=== PATIENT | female | born 1965 | race Caucasian/White ===

== ENCOUNTER 2016-08-14 13:43 | Emergency (ER) | payer SELFPAY ==
[~2016-08-14] VITALS: Ht 154.9 cm; Wt 54.4 kg
[~2016-08-14 13:43] MED LIST: CHLO15MO2 MM; HYDR-971 PO; PENI500T PO
[2016-08-14 14:27] LABS: BASO # 0.1 x10^3/uL (0.0-0.2); BASO % 1 % (0-3); EOS % 1 % (0-3); HEMATOCRIT 30.1 % (36.0-47.0); HEMOGLOBIN 9.4 g/dL (12.0-15.5); LYMPH # 1.2 x10^3/uL (1.0-4.8); LYMPH % 9 % (24-48); MEAN CORPUSCULAR HEMOGLOBIN 23 pg (25-35); MEAN CORPUSCULAR HGB CONC 31 g/dL (31-37); MEAN CORPUSCULAR VOLUME 73 fL (79-100); MONO % 7 % (0-9); NEUT % 82 % (31-73); PLATELET COUNT 501 x10^3/uL (140-400); RED BLOOD COUNT 4.15 x10^6/uL (3.50-5.40); RED CELL DISTRIBUTION WIDTH 18.2 % (11.5-14.5); WHITE BLOOD COUNT 12.7 x10^3/uL (4.0-11.0)
[2016-08-14 14:39] LABS: CREATININE 0.9 mg/dL (0.6-1.0); GFR 66.3; POTASSIUM 3.8 mmol/L (3.5-5.1)
[2016-08-14 14:45] LABS: ALBUMIN 4.2 g/dL (3.4-5.0); ALBUMIN/GLOBULIN RATIO 1.1 (1.0-1.7); TOTAL BILIRUBIN 0.8 mg/dL (0.2-1.0); TOTAL PROTEIN 8.2 g/dL (6.4-8.2)
[2016-08-14] MEDS ORDERED: KETOROLAC TROMETHAMINE 30 MG/ML INJ. IV ONE (14:45)
--- NOTE | 2016-08-14 14:54 | RAD ---
EXAM: Pelvic ultrasound. HISTORY: Pelvic pain and vaginal bleeding. COMPARISON: None. FINDINGS: Sonographic evaluation of the pelvis was performed transabdominally. The uterus is anteverted and measures 13.2 x 8.3 x 9.2 cm. It is enlarged by multiple fibroids that measure up to 8.3 x 6.6 x 6.1 cm at the fundus. These are secured the endometrial stripe which is not well seen. Some endometrial fluid is suspected along the lower uterine segment or endocervical. Both ovaries are obscured currently. IMPRESSION: 1. The uterus is enlarged by multiple fibroids that measure up to 8.3 cm. These obscure the endometrial stripe which is not well assessed currently. Endometrial fluid is consistent with hemorrhage.
[2016-08-14 15:08] LABS: PLT ESTIMATE INCREASED (ADEQUATE)
[2016-08-14 15:10] LABS: ANISOCYTOSIS SLIGHT; HYPOCHROMIA MOD; MICROCYTOSIS MOD; POLYCHROMASIA SLIGHT
[2016-08-14] MEDS ORDERED: fentaNYL PF VIAL 100 MCG/2 ML VIAL IV ONE (15:45)
[2016-08-14 16:24] VITALS: BP 119/64
--- NOTE | 2016-08-14 16:37 | PHYS DOC ---
Past Medical History Past Medical History: No Pertinent History Past Surgical History: Alcohol Use: None Drug Use: Marijuana Adult General Chief Complaint Chief Complaint: ABDOMINAL PAIN HPI HPI Patient is a 51 year old female who presents with severe pelvic pain and heavy bleeding. The patient states for quite some time her menstrual periods have been very heavy with clots and sometimes severe cramping pain. Her menses began last night, and this afternoon, she developed severe pain in her pelvic area that shoots down both legs into her anterior thighs. She's had heavy bleeding with clots. She also recently has had irregular menstrual bleeding. Patient states that she was told in the past she had a "fibroid cyst". She has no insurance and is not able to follow-up with a [facility]PER[facility] doctor. She had a in 1983. Patient has used Profen in the past but not regularly. She is on no regular medications. She states when she takes aspirin and she thinks it makes her bleeding heavier. Review of Systems Review of Systems Constitutional: Denies fever or chills [] Eyes: Denies change in visual acuity, redness, or eye pain [] HENT: Denies nasal congestion or sore throat [] Respiratory: Denies cough or shortness of breath [] Cardiovascular: Denies chest pain GI: Denies abdominal pain, nausea, vomiting, bloody stools or diarrhea [] : As in history of present illness Musculoskeletal: Denies back pain or joint pain [] Integument: Denies rash or skin lesions [] Neurologic: Denies headache, focal weakness or sensory changes [] Current Medications Current Medications Current Medications Medications (Trade) Dose Ordered Sig/[facility] Start Time Stop Time Status Last Admin Dose Admin Fentanyl Citrate (Fentanyl 2ml Vial) 75 mcg 1X ONCE 08/14/16 15:45 08/14/16 15:46 DC 08/14/16 15:51 75 MCG Ketorolac Tromethamine (Toradol) 30 mg 1X ONCE 08/14/16 14:45 08/14/16 14:46 DC 08/14/16 14:37 30 MG Allergies Allergies Allergies Coded Allergies Type Severity Reaction Last Updated Verified No Known Drug Allergies 02/06/13 No Physical Exam Physical Exam Constitutional: Well developed, well nourished, , mentating normally, appears to feel well. HENT: Normocephalic, atraumatic, bilateral external ears normal, nose normal. [] Eyes: conjunctiva normal, no discharge. [] Neck: Normal range of motion, no stridor. [] Cardiovascular:Heart rate regular rhythm, no murmur [] Lungs & Thorax: Bilateral breath sounds clear to auscultation [] Abdomen: Bowel sounds normal, soft, no masses, no pulsatile masses. Nondistended. Mild to moderate tenderness to palpation of the suprapubic area and across the low lower quadrants bilaterally in the pelvic area. No rebound or guarding. Skin: Warm, dry, no erythema, no rash. [] Extremities: No tenderness, no cyanosis, no clubbing, ROM intact, no edema. [] Neurologic: Alert and oriented X 3, normal motor function, normal sensory function, no focal deficits noted. [] Current Patient Data Vital Signs Vital Signs Date Time Temp Pulse Resp B/P (MAP) Pulse Ox O2 Delivery O2 Flow Rate FiO2 08/14/16 15:51 Room Air 08/14/16 14:00 97.8 69 24 100 97.8 Lab Values Laboratory Tests Test 08/14/16 13:10 08/14/16 14:05 POC Urine HCG, Qualitative Hcg negative (Negative) White Blood Count 12.7 x10^3/uL (4.0-11.0) H Red Blood Count 4.15 x10^6/uL (3.50-5.40) Hemoglobin 9.4 g/dL (12.0-15.5) L Hematocrit 30.1 % (36.0-47.0) L Mean Corpuscular Volume 73 fL (79-100) L Mean Corpuscular Hemoglobin 23 pg (25-35) L Mean Corpuscular Hemoglobin Concent 31 g/dL (31-37) Red Cell Distribution Width 18.2 % (11.5-14.5) H Platelet Count 501 x10^3/uL (140-400) H Neutrophils (%) (Auto) 82 % (31-73) H Lymphocytes (%) (Auto) 9 % (24-48) L Monocytes (%) (Auto) 7 % (0-9) Eosinophils (%) (Auto) 1 % (0-3) Basophils (%) (Auto) 1 % (0-3) Neutrophils # (Auto) 10.4 x10^3uL (1.8-7.7) H Lymphocytes # (Auto) 1.2 x10^3/uL (1.0-4.8) Monocytes # (Auto) 0.9 x10^3/uL (0.0-1.1) Eosinophils # (Auto) 0.1 x10^3/uL (0.0-0.7) Basophils # (Auto) 0.1 x10^3/uL (0.0-0.2) Platelet Estimate Increased (ADEQUATE) Polychromasia Slight Hypochromasia Mod Anisocytosis Slight Microcytosis Mod Sodium Level 136 mmol/L (136-145) Potassium Level 3.8 mmol/L (3.5-5.1) Chloride Level 101 mmol/L (98-107) Carbon Dioxide Level 23 mmol/L (21-32) Anion Gap 12 (6-14) Blood Urea Nitrogen 17 mg/dL (7-20) Creatinine 0.9 mg/dL (0.6-1.0) Estimated GFR (Cockcroft-Gault) 66.3 BUN/Creatinine Ratio 19 (6-20) Glucose Level 94 mg/dL (70-99) Calcium Level 9.0 mg/dL (8.5-10.1) Total Bilirubin 0.8 mg/dL (0.2-1.0) Aspartate Amino Transferase (AST) 38 U/L (15-37) H Alanine Aminotransferase (ALT) 34 U/L (14-59) Alkaline Phosphatase 107 U/L (46-116) Total Protein 8.2 g/dL (6.4-8.2) Albumin 4.2 g/dL (3.4-5.0) Albumin/Globulin Ratio 1.1 (1.0-1.7) Laboratory Tests 08/14/16 14:05 Laboratory Tests 08/14/16 14:05 EKG EKG [] Radiology/Procedures Radiology/Procedures EXAM: Pelvic ultrasound. HISTORY: Pelvic pain and vaginal bleeding. COMPARISON: None. FINDINGS: Sonographic evaluation of the pelvis was performed transabdominally. The uterus is anteverted and measures 13.2 x 8.3 x 9.2 cm. It is enlarged by multiple fibroids that measure up to 8.3 x 6.6 x 6.1 cm at the fundus. These are secured the endometrial stripe which is not well seen. Some endometrial fluid is suspected along the lower uterine segment or endocervical. Both ovaries are obscured currently. IMPRESSION: 1. The uterus is enlarged by multiple fibroids that measure up to 8.3 cm. These obscure the endometrial stripe which is not well assessed currently. Endometrial fluid is consistent with hemorrhage. [] Course & Med Decision Making Course & Med Decision Making Pertinent Labs and Imaging studies reviewed. (See chart for details) 51-year-old female presents with pelvic pain and heavy bleeding. As a history of a fibroid. test negative. Labs show anemia consistent with her history of heavy irregular menstrual bleeding. Ultrasound shows multiple fibroids but no other significant findings. Patient was given IV pain meds and felt much better. Discussed with the patient and her that she really needs to follow up with [facility] and gave her a referral. Also gave her a copy of her ultrasound to take with her to her appointment. See instructions for plan. [] Dragon Disclaimer Dragon Disclaimer This electronic medical record was generated, in whole or in part, using a voice recognition dictation system. Departure Departure Impression: Primary Impression: Dysmenorrhea Additional Impressions: Menorrhagia Anemia, blood loss Disposition: 01 HOME, SELF-CARE Condition: STABLE Referrals: NO PCP (PCP) DAVE MORRIS Jr, MD Patient Instructions: Dysmenorrhea, [id number] Additional Instructions: As we discussed, your ultrasound report did show large fibroids. I believe your heavy and painful bleeding is likely due to the fibroids. You do need to see a [facility]IVERY SUPERVISOR specialist for evaluation and treatment. Sometimes this can be controlled with medications such as hormones, other times they recommend surgery such as hysterectomy. You are anemic because you have been having heavy bleeding. Drink plenty of fluids. Purchase [id number] iron supplement and take one every day. Call for [facility] SUPER[facility]OR appointment as soon as possible. Problem Qualifiers MALIK BELL MD Aug 14, 2016 16:37
== END 2016-08-14 16:50 | disposition home or self-care (01) ==
LOC: ER 13:43
DX: N94.6 Dysmenorrhea, unspecified (principal); N92.0 Excessive and frequent menstruation with regular cycle; D50.0 Iron deficiency anemia secondary to blood loss (chronic); D25.9 Leiomyoma of uterus, unspecified; F12.10 Cannabis abuse, uncomplicated; Z98.890 Other specified postprocedural states
CPT/HCPCS: 36415; 76856; 80053; 81025; 85007; 85027; 96374; 96375; 99285; J1885; J3010